=== PATIENT | male | born 1980 | race Caucasian/White ===

== ENCOUNTER 2017-09-25 17:27 | Emergency (ER) | payer OTHER ==
[~2017-09-25] VITALS: Ht 182.9 cm; Wt 79.4 kg
[~2017-09-25 17:27] MED LIST: OXYACE5T PO; RXERYTOPTH OP
[2017-09-25] MEDS ORDERED: BENZ100A PO (18:56)
== END 2017-09-25 19:04 | disposition home or self-care (01) ==
LOC: ER 17:27
DX: J11.1 Influenza due to unidentified influenza virus with other respiratory manifestations (principal); F17.200 Nicotine dependence, unspecified, uncomplicated
CPT/HCPCS: 99282

== ENCOUNTER 2020-07-04 18:40 | Emergency (ER) | payer OTHER ==
[~2020-07-04] VITALS: Ht 182.9 cm; Wt 77.1 kg
[~2020-07-04 18:40] MED LIST changes: +BENZ100A PO; +KETO10 PO; +Norco 5-325 Ta1 EACH PO
[2020-07-04 19:30] LABS: BASOPHILS ABSOLUTE AUTO 0.08 K/mm3 (0.00-0.23); BASOPHILS PERCENT AUTO 1 % (0-2); EOSINOPHILS ABSOLUTE AUTO 0.08 K/mm3 (0.00-0.68); EOSINOPHILS PERCENT AUTO 1 % (0-6); Hemoglobin 15.9 g/dL (13.5-17.5); IMMATURE GRAN ABSOLUTE AUTO 0.03 K/mm3 (0.00-0.10); IMMATURE GRAN PERCENT AUTO 1 % (0-1); LYMPHOCYTES ABSOLUTE AUTO 2.11 K/mm3 (0.84-5.20); LYMPHOCYTES PERCENT AUTO 32 % (21-46); MONOCYTES ABSOLUTE AUTO 0.66 K/mm3 (0.16-1.47); MONOCYTES PERCENT AUTO 10 % (4-13); Mean Corpuscular HGB 34.2 pg (26.0-34.0); Mean Corpuscular HGB Conc 34.6 g/dL (31.5-36.5); Mean Corpuscular Volume 99 fL (80-100); Mean Platelet Volume 8.3 fL (9.1-12.4); NEUTROPHILS ABSOLUTE AUTO 3.64 K/mm3 (1.96-9.15); NEUTROPHILS PERCENT AUTO 55 % (41-73); Platelet Count 293 K/mm3 (150-400); RDW Coefficient Variation 12.1 % (11.7-14.2); RDW Standard Deviation 44.3 fL (35.1-46.3); Red Blood Cell Count 4.65 M/mm3 (4.30-5.90)
[2020-07-04 19:48] LABS: International Normalized Ratio 0.93
[2020-07-04 20:03] LABS: Alanine Aminotransfer (ALT/SGP 123 U/L (12-78); Albumin, Blood 3.7 g/dL (3.4-5.0); Albumin/Globulin Ratio 1.1 (0.8-1.8); Alk Phos 63 U/L (50-136); Anion Gap 10 mmol/L (6-16); Aspartate Aminotrans (AST/SGOT 113 U/L (12-37); Bilirubin, Total 0.4 mg/dL (0.1-1.0); Blood Urea Nitrogen 6 mg/dL (8-24); Bun/Creatinine Ratio 6.8 (12.0-20.0); CO2, Blood 24 mmol/L (21-32); Calcium, Blood 8.9 mg/dL (8.5-10.1); Chloride, Blood 111 mmol/L (98-108); Creatinine, Blood 0.88 mg/dL (0.60-1.20); Globulin, Blood 3.5 g/dL (2.2-4.0); Glomerular Filtration Rate >60 (60-); Glucose, Blood 89 mg/dL (70-99); Potassium, Blood 3.7 mmol/L (3.5-5.5); Sodium, Blood 145 mmol/L (136-145); Total Protein, Blood 7.2 g/dL (6.4-8.2); Troponin I <0.015 ng/mL (0.000-0.040)
[2020-07-04 20:56] LABS: Magnesium, Blood 2.2 mg/dL (1.6-2.4)
== END 2020-07-04 23:02 | disposition home or self-care (01) ==
LOC: ER 18:40
PROVIDERS: Physician Assistant
DX: R51.9 Headache, unspecified (principal); M54.2 Cervicalgia; F17.210 Nicotine dependence, cigarettes, uncomplicated
CPT/HCPCS: 36415; 70450; 70496; 70498; 80053; 83735; 84484; 85025; 85610; 85730; 93005; 93010; 96374-59; 96375-59; 99284-25; J0780; J1200; J1885; J7030; Q9967

== ENCOUNTER → 2022-04-23 | Outpatient (CLI) | payer OTHER | END | disposition home or self-care (01) | LOC: LAB SHORT 18:15 → LAB 18:15 | DX: N30.01 Acute cystitis with hematuria (principal) | CPT/HCPCS: 87086 ==

== ENCOUNTER 2024-11-08 17:18 | Observation (INO) | payer OTHER ==
[~2024-11-08] VITALS: Ht 182.9 cm; Wt 73.3 kg
[2024-11-08 20:36] LABS: BASOPHILS ABSOLUTE AUTO 0.05 K/mm3 (0.00-0.23); BASOPHILS PERCENT AUTO 0 % (0-2); EOSINOPHILS PERCENT AUTO 1 % (0-6); Hematocrit 41.8 % (37.0-53.0); Hemoglobin 14.9 g/dL (13.5-17.5); IMMATURE GRAN ABSOLUTE AUTO 0.03 K/mm3 (0.00-0.10); IMMATURE GRAN PERCENT AUTO 0 % (0-1); LYMPHOCYTES ABSOLUTE AUTO 1.24 K/mm3 (0.84-5.20); LYMPHOCYTES PERCENT AUTO 10 % (21-46); MONOCYTES ABSOLUTE AUTO 1.06 K/mm3 (0.16-1.47); MONOCYTES PERCENT AUTO 8 % (4-13); Mean Corpuscular HGB 34.4 pg (26.0-34.0); Mean Corpuscular HGB Conc 35.6 g/dL (31.5-36.5); Mean Corpuscular Volume 97 fL (80-100); Mean Platelet Volume 8.6 fL (9.1-12.4); NEUTROPHILS ABSOLUTE AUTO 10.38 K/mm3 (1.96-9.15); NEUTROPHILS PERCENT AUTO 81 % (41-73); Platelet Count 230 K/mm3 (150-400); RDW Standard Deviation 43.1 fL (35.1-46.3); Red Blood Cell Count 4.33 M/mm3 (4.30-5.90); White Blood Cell Count 12.86 K/mm3 (4.00-11.30)
[2024-11-08] MEDS ORDERED: Vancomycin HCL 1,500 MG in NS 250 ML IV ONE (20:55)
[2024-11-08 20:56] LABS: Albumin, Blood 3.5 g/dL (3.4-5.0); Albumin/Globulin Ratio 0.9 (0.8-1.8); Bilirubin, Total 0.7 mg/dL (0.1-1.0); Bun/Creatinine Ratio 12.7 (12.0-20.0); Calcium, Blood 8.9 mg/dL (8.5-10.1); Creatinine, Blood 0.86 mg/dL (0.60-1.20); Globulin, Blood 3.9 g/dL (2.2-4.0); Potassium, Blood 3.6 mmol/L (3.5-5.5); Total Protein, Blood 7.4 g/dL (6.4-8.2)
[2024-11-08] MEDS ORDERED: NS 1,000 ML IV SCH ×2 (22:45→23:55)
[2024-11-08] MEDS ORDERED: Cefepime HCl 2,000 MG in NS 100 ML IV ONE (22:45)
[2024-11-08] MEDS ORDERED: FentaNYL Citrate 50 MCG/ML 2 ML Injection IV PRN ×2 (23:30→23:55)
[2024-11-08] MEDS ORDERED: FLU VACC TS2024-25(6MOS UP)/PF 45 MCG/0.5 ML SYRINGE IM ONE ×2 (23:30→23:55)
[2024-11-08] MEDS ORDERED: Ondansetron HCl 2 MG / ML 2ML Vial IV PRN ×2 (23:30→23:55)
[2024-11-08] MEDS ORDERED: OxyCODONE 5 mg/Acetamin 325 mg TABLET PO PRN (23:30)
[2024-11-08] MEDS ORDERED: Lactated Ringer's 1,000 ML IV SCH (23:30)
[2024-11-08] MEDS ORDERED: Acetaminophen 325 MG TABLET PO PRN (23:55)
[2024-11-09] VITALS (9 sets, daily range): BP systolic 94–114; BP diastolic 64–84
[2024-11-09] MEDS ORDERED: Ampicillin Sod/Sulbactam Sod 3 GM in NS 100 ML IV SCH (00:06)
--- NOTE | 2024-11-09 02:24 | NUR ---
PATIENT IS A NEW ADMIT FROM THE ED. ALERT ORIENTED AND ARRIVED VIA W/C WITH SELF TRANSFER TO BED. DENIES CHEST PAIN, SOB, AND N/V. REPORTED PAIN TO PERINEUM. PERCOCET 5/325 GIVEN PER EMAR. TELEMETRY PLACED AND TECH REPORTS ST @ 100. ON ROOM AIR. LR STARTED AT 125 mL/HR. NPO >06:00 PER ORDER. ORIENTED TO ROOM AND CALL LIGHT SYSTEM. 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 WATCHING TV AFTER ASSESSMENT. BENY.
[2024-11-09] MEDS ORDERED: NS 250 ML IV PRN (02:25)
[2024-11-09 05:50] LABS: BASOPHILS ABSOLUTE AUTO 0.03 K/mm3 (0.00-0.23); BASOPHILS PERCENT AUTO 0 % (0-2); EOSINOPHILS ABSOLUTE AUTO 0.06 K/mm3 (0.00-0.68); EOSINOPHILS PERCENT AUTO 1 % (0-6); Hematocrit 40.1 % (37.0-53.0); Hemoglobin 13.9 g/dL (13.5-17.5); IMMATURE GRAN ABSOLUTE AUTO 0.04 K/mm3 (0.00-0.10); IMMATURE GRAN PERCENT AUTO 0 % (0-1); LYMPHOCYTES ABSOLUTE AUTO 1.18 K/mm3 (0.84-5.20); LYMPHOCYTES PERCENT AUTO 11 % (21-46); MONOCYTES ABSOLUTE AUTO 1.24 K/mm3 (0.16-1.47); MONOCYTES PERCENT AUTO 11 % (4-13); Mean Corpuscular HGB 34.4 pg (26.0-34.0); Mean Corpuscular HGB Conc 34.7 g/dL (31.5-36.5); Mean Corpuscular Volume 99 fL (80-100); Mean Platelet Volume 8.5 fL (9.1-12.4); NEUTROPHILS ABSOLUTE AUTO 8.71 K/mm3 (1.96-9.15); NEUTROPHILS PERCENT AUTO 77 % (41-73); Platelet Count 213 K/mm3 (150-400); RDW Coefficient Variation 12.1 % (11.7-14.2); RDW Standard Deviation 44.4 fL (35.1-46.3); Red Blood Cell Count 4.04 M/mm3 (4.30-5.90); White Blood Cell Count 11.26 K/mm3 (4.00-11.30)
[2024-11-09 06:16] LABS: Albumin, Blood 3.1 g/dL (3.4-5.0); Albumin/Globulin Ratio 0.9 (0.8-1.8); Calcium, Blood 8.5 mg/dL (8.5-10.1); Creatinine, Blood 0.84 mg/dL (0.60-1.20); Globulin, Blood 3.3 g/dL (2.2-4.0); Potassium, Blood 4.1 mmol/L (3.5-5.5); Total Protein, Blood 6.4 g/dL (6.4-8.2)
--- NOTE | 2024-11-09 06:16 | NUR ---
CALLED IN SURGERY CONSULT BUT OFFICE NOT OPEN AT THIS TIME AND NO ANSWERING SERVICE. WILL PASS INFO ON TO DAY RN TO CALL.
[2024-11-09] MEDS ORDERED: Lactated Ringer's 1,000 ML IV SCH (07:55)
[2024-11-09] MEDS ORDERED: Docusate Sodium 100 MG Cap PO SCH (09:00)
[2024-11-09 10:34] LABS: Source, Urine Clean Catch
[2024-11-09 10:55] LABS: Appearance, Urine Clear (Clear); Bilirubin, Urine Neg (Neg); Blood, Urine Neg (Neg); Color, Urine Yellow (P-Yellow); Glucose Qualitative, Urine Neg (Neg); Ketones, Urine 1+ (Neg); Leukocyte Esterase, Urine Neg (Neg); Nitrite, Urine Neg (Neg); Protein, Urine Neg (Neg); Urobilinogen, Urine 1+ (Normal)
--- NOTE | 2024-11-09 12:13 | NUR ---
PT INTO SDS VIA ROSIE FOR EUA AND I+D W/ DR. JOHNSON Pre-Op teaching done. Pt verbalizes understanding. History, Chart, Medications and Allergies reviewed before start of procedure.Patient confirms NPO status and agrees with scheduled surgery.
--- NOTE | 2024-11-09 12:15 | NUR ---
IV SITE PATENT BUT BRUISED
[2024-11-09] MEDS ORDERED: propofoL 20 ML IV ONE (13:17)
[2024-11-09] MEDS ORDERED: Midazolam HCl 1MG / ML 2ML Vial ONE (13:17)
[2024-11-09] MEDS ORDERED: FentaNYL Citrate 50 MCG/ML 2 ML Injection ONE (13:17)
[2024-11-09] MEDS ORDERED: Labetalol HCL 5 MG/ML 4ML Injection (Single Dose) IV PRN (13:30)
[2024-11-09] MEDS ORDERED: FentaNYL Citrate 50 MCG/ML 2 ML Injection IV PRN (13:35)
[2024-11-09] MEDS ORDERED: Albuterol 2.5 MG/3 ML VIAL INH PRN (13:35)
[2024-11-09] MEDS ORDERED: HYDROmorphone HCl/Pf 1MG SYR IV PRN (13:35)
--- NOTE | 2024-11-09 13:57 | NUR ---
11/09/24 1357 Cindy Stovall PATIENT IS ON SCHEDULED ANTIBIOTICS. LAST DOSE RECEIVED AT 1123.
[2024-11-09] MEDS ORDERED: AMOCLA875 PO (15:56)
[2024-11-09] MEDS ORDERED: VISBIOME 112.51 EACH PO (15:56)
[2024-11-09] MEDS ORDERED: OXYC5 PO (15:57)
--- NOTE | 2024-11-09 17:13 | NUR ---
DISCHARGE NOTE PT DISCHARGED TO HOME, PICKED UP BY HIS . IV REMOVED, TELE RETURNED. DISCHARGE EDUCATION AND INFORMATION REVIEWED WITH THE PT. MEDICATIONS FAXED TO THE PHARMACY OF HIS CHOICE.
[2024-11-09] MEDS ORDERED: Lactobacil 2-S.Thermo-Bifido 1 1 Cap PO SCH (21:00)
== END 2024-11-09 16:30 | disposition home or self-care (01) ==
LOC: ER 17:18 → MEDS 17:19 → ER 23:27 → SURS 23:27 → MEDS 23:27 → SURS 11-09 01:20 → MEDS 11-09 15:15
PROVIDERS: Physician Assistant; Surgery; ADMIT Internal Medicine
PROC: 0J9B00Z Drainage of Perineum Subcutaneous Tissue and Fascia with Drainage Device, Open Approach (ICD-10-PCS; principal; 2024-11-09 13:30)
DX: L02.215 Cutaneous abscess of perineum (principal); F17.210 Nicotine dependence, cigarettes, uncomplicated
CPT/HCPCS: 36415; 72193; 76870; 80053; 81003; 83605; 83880; 85025; 87040; 96365-59; 96366; 99284-25; A9270; G0378; J0295; J0692; J2250; J2704; J3010; J3370; J7030; J7050; J7120; Q9967

== ENCOUNTER 2025-07-13 19:27 | Emergency (ER) | payer OTHER ==
[~2025-07-13] VITALS: Ht 182.9 cm; Wt 77.1 kg
[~2025-07-13 19:27] MED LIST changes: +AMOCLA875 PO; +OXYC5 PO; +VISBIOME 112.51 EACH PO
[2025-07-13 19:36] VITALS: BP 122/92
== END 2025-07-13 22:50 | disposition left against medical advice (07) ==
LOC: ER 19:27
DX: L03.011 Cellulitis of right finger (principal); Z53.29 Procedure and treatment not carried out because of patient's decision for other reasons; F17.210 Nicotine dependence, cigarettes, uncomplicated
CPT/HCPCS: 99282